=== PATIENT | female | born 1960 | race Caucasian/White ===

== ENCOUNTER → 2020-10-02 | Outpatient (CLI) | payer MEDICARE, OTHER ==
[~2020-10-02] MED LIST: HALDOL 5 MG TAB5 MG PO; HALOPERIDOL10 MG PO; INVEGA6 MG PO; TOPAMAX25 MG PO
[2020-10-02 10:26] LABS: RED BLOOD COUNT 3.1 M/UL (4.00-5.10); WHITE BLOOD COUNT 8.1 K/UL (4.5-11.0)
[2020-10-02 10:32] LABS: HEMOGLOBIN 5.8 gm/dl (12.3-15.3)
== END ==
LOC: OPSV2 09:33
PROVIDERS: Obstetrics & Gynecology
DX: Z01.812 Encounter for preprocedural laboratory examination (principal); N95.0 Postmenopausal bleeding
CPT/HCPCS: 36415; 85025

== ENCOUNTER → 2021-01-09 | Outpatient (CLI) | payer MEDICARE, OTHER ==
[~2021-01-09] MED LIST changes: +IRON325 M1 PO; +MIRTAZAPINE7.5 MG PO
[2021-01-09 13:20] LABS: HEMOGLOBIN 7.3 gm/dl (12.3-15.3); RED BLOOD COUNT 3.59 M/UL (4.00-5.10); WHITE BLOOD COUNT 10.9 K/UL (4.5-11.0)
[2021-01-09 13:38] LABS: BUN/CREATININE RATIO 22 (0-10)
== END ==
LOC: OPSV2 12:08
PROVIDERS: Obstetrics & Gynecology
DX: Z01.812 Encounter for preprocedural laboratory examination (principal); N95.0 Postmenopausal bleeding
CPT/HCPCS: 80048; 85025